=== PATIENT | female | born 1995 | race Caucasian/White ===

== ENCOUNTER 2021-04-28 13:56 | Outpatient (REF) | payer OTHER, SELFPAY ==
[2021-04-29 08:30] LABS: HBS Num1 0.82 mIU/mL (0-7.99); ~Hepatitis B Surface Antibody NONREACTIVE (Nonreactive)
[2021-05-01 12:06] LABS: TS Negative Control Passed; TS Panel A 0; TS Panel B 1; TS Positive Control Passed; TSpotTB Negative (SeeBelow)
== END 2021-04-28 13:57 | disposition home or self-care (01) ==
LOC: HO.LNP 13:56
PROVIDERS: Visit Provider Internal Medicine
DX: Z02.1 Encounter for pre-employment examination (principal)
CPT/HCPCS: 86481; 86706; 86787; 87651